=== PATIENT | female | born 1940 | race Caucasian/White ===

== ENCOUNTER 2018-04-07 13:36 | Day surgery (SDC) | payer MEDICARE, OTHER ==
[~2018-04-07 13:36] MED LIST: ALBU.5I INH; BUDE.25I INH; CEFT500T PO; CENTTAB9 PO; DIFL150T PO; LATA0.00 OP; LISI-366 PO; MUCI600T PO
[2018-04-07 14:00] VITALS: BP 142/69; PULSE 75; RESP 18; TEMP 97.5; O2SAT 95
[2018-04-07] MEDS ORDERED: AMLO5TAB2 PO (14:03)
[2018-04-07] MEDS ORDERED: APIX5TAB PO (14:03)
[2018-04-07] MEDS ORDERED: LATA0.002 EACH EYE (14:03)
[2018-04-07] MEDS ORDERED: LOSA100T PO (14:03)
[2018-04-07] MEDS ORDERED: TRIAMCINOLONE ACETONIDE 40 MG/ML VIAL ONE (16:11)
[2018-04-07] MEDS ORDERED: BUPIVACAINE HCL PF 0.75% 30 ML VIAL ONE (16:11)
[2018-04-07 16:50] VITALS: BP 177/79; PULSE 63; RESP 18; TEMP 97.6; O2SAT 95
--- NOTE | 2018-04-07 17:57 | RADRPT ---
EXAM DATE: 04/07/2018 5:02 PM EDT AGE/SEX: 77 years / Female INDICATIONS: Patient presents with lower back pain in need of nerve root injection for pain manageme nt. CLINICAL DATA: This is the patient's initial encounter. Patient reports that signs and symptoms have been present for > 1 year and indicates a pain score of 2/10. MEDICAL/SURGICAL HISTORY: . COPDHTNAsthmaCVD . N/a COMPARISON: No prior [place] exams available for comparison. FLUORO TIME (min): 1.06 IMAGE SERIES: 2 ACCESS SITE: Right L4-L5 CONTRAST (cc): 0.5 Omnipaque (iohexol) 300 MEDICATION(S): 80 mg triamcinolone (Kenalog) IA 2 cc bupivacaine (Marcaine) IA RESPONSE: Pain Score Pre Procedure: 2/10 Pain Score Post Procedure: 0/10 . . PROCEDURE : 1. Fluoroscopically guided nerve root injection. The risks, benefits and alternatives to the procedure were explained and verbal and written consent w as obtained. The site was prepped in sterile fashion. Full sterile technique was used, including ca p, mask, sterile gloves and gown and a large sterile sheet. Hand hygiene and 2% chlorhexidine and/or betadine/alcohol prep was utilized per protocol for cutaneous antisepsis. The skin and subcutaneous tissues were infiltrated with local anesthetic solution. With fluoroscopic guidance the targeted nerve root was localized and positive contrast was injected t o confirm epidural spread. Following this the prescribed medication was injected surrounding the ner ve root sleeve. The patient's preprocedure pain and post procedure pain levels were recorded. CONCLUSION: 1. Uncomplicated fluoroscopically guided nerve root injection as above. Electronically signed by: Dionicio Leon MD 04/07/2018 5:56 PM EDT
== END 2018-04-07 17:30 | disposition home or self-care (01) ==
LOC: HROP 13:36 → HRIP 13:42 → HROP 17:30
PROVIDERS: ATTEND Family Medicine
DX: M54.16 Radiculopathy, lumbar region (principal)
CPT/HCPCS: 64483; J3301